=== PATIENT | female | born 1960 | race Caucasian/White ===

== ENCOUNTER → 2017-11-27 14:53 | Outpatient (CLI) | payer OTHER, SELFPAY | PROVIDERS: Visit Provider Nurse Practitioner | DX: Z78.0 Asymptomatic menopausal state (principal) | CPT/HCPCS: 77080 ==

== ENCOUNTER → 2019-02-12 16:15 | Outpatient (CLI) | payer OTHER, SELFPAY ==
--- NOTE | 2019-02-12 16:17 | BI_ITS ---
MAMMOGRAPHY - BILATERAL SCREENING REASON FOR EXAM: Female, 59 years old. Routine annual screening examination. PERTINENT HISTORY: Sister with breast cancer. Grandmother with breast cancer. TECHNIQUE: Digital bilateral breast renee (3D mammographic acquisition) in the CC and MLO projections. 2-D mediolateral oblique (MLO) and craniocaudad (CC) views of both breasts were obtained. CAD: Full Field Digital Mammography with Computer Added Detection was performed. COMPARISON: Comparison is made with prior outside examination dated October 06, 2016. FINDINGS: Breast Composition: There are scattered areas of fibroglandular density. There are no dominant masses or suspicious calcifications. Stable 7.7 mm well-defined nodule in the upper lateral aspect of the right breast. This most likely represents a small lymph node. Stable fat-containing bilateral axillary lymph nodes. No other significant abnormalities are identified. There has been no significant change since the prior study. BI/SCREEN MAMM (CAD) W/RENEE BILAT IMPRESSION: Stable bilateral screening mammogram. Yearly follow-up mammogram recommended. (A) ASSESSMENT CATEGORY: BIRADS Category 2: Benign. A letter regarding these results will be sent to the patient by the facility within 30 days. Approximately 10% of breast cancers are not detected by mammography. A normal mammogram should not delay biopsy of a clinically suspicious abnormality. [id number] Electronically Signed: Srinath Linder, at 8:18 EST , Service support ,
== END ==
PROVIDERS: Family Provider Nurse Practitioner; PCP Nurse Practitioner; Referring Provider Nurse Practitioner; Visit Provider Nurse Practitioner
DX: Z12.31 Encounter for screening mammogram for malignant neoplasm of breast (principal)
CPT/HCPCS: 77063; 77067

== ENCOUNTER → 2020-03-16 13:20 | Outpatient (CLI) | payer OTHER, SELFPAY ==
--- NOTE | 2020-03-16 13:23 | BI_ITS ---
MAMMOGRAPHY - BILATERAL SCREENING REASON FOR EXAM: Female, 60 years old. Routine annual screening examination. PERTINENT HISTORY: Sister with breast cancer. Grandmother with breast cancer. TECHNIQUE: Digital bilateral breast renee (3D mammographic acquisition) in the CC and MLO projections. 2-D mediolateral oblique (MLO) and craniocaudad (CC) views of both breasts were obtained. CAD: Full Field Digital Mammography with Computer Added Detection was performed. COMPARISON: Comparison is made with prior examination dated 02/12/2019. FINDINGS: Breast Composition: There are scattered areas of fibroglandular density. There are no dominant masses or suspicious calcifications. Stable benign appearing bilateral axillary lymph nodes. There is a 9.2 mm x 7.8 mm well-defined nodule in the upper slightly medial portion of the left breast. Correlation with ultrasound is recommended. No other significant abnormalities are identified. BI/SCREEN MAMM (CAD) W/RENEE BILAT IMPRESSION: 19.2 mm x 7 point millimeter well-defined nodule in the upper slightly medial portion of the left breast. Correlation with ultrasound is recommended. ASSESSMENT CATEGORY: BIRADS Category 0: Incomplete. Need additional imaging evaluation. A letter regarding these results will be sent to the patient by the facility within 30 days. Approximately 10% of breast cancers are not detected by mammography. A normal mammogram should not delay biopsy of a clinically suspicious abnormality. [id number] Electronically Signed: Srinath Linder, at 14:31 EST , Service support ,
--- NOTE | 2020-03-16 13:25 | BD_ITS ---
STUDY: DUAL ENERGY X-RAY ABSORPTIOMETRY / DXA REASON FOR EXAM: Female, 60 years old. 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 COMPARISON: Comparison is made with prior examination -- 11/27/2017. FINDINGS: Lumbar Spine (L1-L4): g/cm2 (1.086) / T-score (-0.8) / Z-score (0.4) Findings are suggestive of normal bone density with a low fracture risk. Left Femur Total: g/cm2 (1.045) / T-score (0.3) / Z-score (1.2) Left Femoral Neck: g/cm2 (0.991) / T-score (-0.3) / Z-score (0.9) Right Femur Total: g/cm2 (1.052) / T-score (0.4) / Z-score (1.3) Right Femoral Neck: g/cm2 (0.979) / T-score (-0.4) / Z-score (0.8) The T-Scores on the most recent prior examination were: Lumbar Spine (L1-L4): There has been improvement of bone density since the previous examination. Left Femur Total: which represents an improvement of 2.1%. Right Femur Total: which represents an improvement of 1.6%. BD/Dexa Bone Density Study IMPRESSION: The patient is considered normal as outlined below according to World Gera Organization (WHO) criteria with a low fracture risk. There has been improvement of bone density since the previous examination. Reference Information: The T-score is the number of standard deviations above or below the standard which is normal for young adults at their peak bone mineral density. The World Health Organization (WHO) interprets the T-scores as follows: Above -1 Normal bone density Between -1 and -2.5 Osteopenia Equal to / or below -2.5 Osteoporosis As a practical clinical guideline, osteopenia may be graded as follows: Mild -1 through -1.5 Moderate -1.6 through -2.0 Severe -2.1 through -2.4 The Z-score is the number of standard deviations above or below age-matched controls. A Z-score of less than -1.5 would be considered abnormal. References: 1. NIH Osteoporosis and Related Bone Diseases www osteo.org 2. International Society for Clinical Densitometry www iscd.org 3. National Osteoporosis Foundation www nof.org Electronically Signed: Srinath Linder, at 15:37 EST , Service support ,
== END ==
PROVIDERS: PCP Nurse Practitioner; Referring Provider Nurse Practitioner; Visit Provider Nurse Practitioner
DX: Z12.31 Encounter for screening mammogram for malignant neoplasm of breast (principal); Z78.0 Asymptomatic menopausal state; Z80.3 Family history of malignant neoplasm of breast
CPT/HCPCS: 77063; 77067; 77080

== ENCOUNTER → 2020-03-22 08:25 | Outpatient (CLI) | payer OTHER, SELFPAY ==
--- NOTE | 2020-03-22 08:27 | US_ITS ---
STUDY: ULTRASOUND BREAST - LEFT REASON FOR EXAM: Female, 60 years old. TECHNIQUE: Axial and longitudinal images of the LEFT breast were performed with a high resolution ultrasound transducer. # OF IMAGES: 125 COMPARISON: None. FINDINGS: LEFT Breast: There is a lesion #1 in the upper inner quadrant. The lesion measures 3 x 5 x 4 mm in size. Clock notation: 12 o''clock position. Distance from nipple: 1 cm. Posterior Enhancement: Yes. Posterior Shadowing: None. Margins: Sharp and smooth. Echogenicity: Anechoic. Compression effect on Shape: No change. There is a lesion # 2 in the upper inner quadrant. The lesion measures 1x1.3x056 cm in size. Clock notation: 3 o''clock position. Distance from nipple: 6 cm. Posterior Enhancement: Yes. Posterior Shadowing: None. Margins: Sharp and jagged. Echogenicity: Anechoic. Compression effect on Shape: No change. US/Breast Limited Unilateral IMPRESSION: Lesion #1 is consistent with benign cyst. Lesion #2 is probably benign finding most likely dilated duct. A follow-up in 6 months is recommended. ASSESSMENT CATEGORY: BIRADS Category 3: Probably Benign - Short-Interval Follow-up Suggested. A letter regarding these results will be sent to the patient by the facility within 30 days. Electronically Signed: Pj Peguero, at 15:52 EST Tel , Service support ,
== END ==
PROVIDERS: PCP Nurse Practitioner; Referring Provider Nurse Practitioner; Visit Provider Nurse Practitioner
DX: N63.22 Unspecified lump in the left breast, upper inner quadrant (principal)
CPT/HCPCS: 76642

== ENCOUNTER → 2021-12-19 | Outpatient (CLI) | payer OTHER, SELFPAY ==
--- NOTE | 2021-12-19 13:23 | RAD_ITS ---
INDICATION: URI (upper respiratory infection EXAMINATION/TECHNIQUE: X-RAY - XR Chest 2 Views COMPARISON: None. FINDINGS: LINES/DEVICES: None. LUNGS: Asymmetric hazy pulmonary opacities within the right lower lung. No overt pulmonary edema. No sizable pleural effusion. No pneumothorax detected. MEDIASTINUM AND CARDIOVASCULAR STRUCTURES: Heart size within normal limits. Mediastinal contours unremarkable. BONES AND SOFT TISSUES: No acute findings. RAD/Chest PA and Lateral IMPRESSION: Right lower lung pulmonary infiltrate. Electronically Signed: Stan Castañeda MD at 6:53 EDT ,
== END | disposition home or self-care (01) ==
LOC: RAD 13:11
PROVIDERS: PCP Nurse Practitioner Family; Referring Provider Nurse Practitioner Family; Visit Provider Nurse Practitioner Family
DX: J06.9 Acute upper respiratory infection, unspecified (principal)
CPT/HCPCS: 71046

== ENCOUNTER 2022-06-24 17:18 | Emergency (ER) | payer OTHER, SELFPAY ==
[2022-06-24 17:23] VITALS: BP 197/120; PULSE 126; RESP 22; TEMP 37.6; O2SAT 95; BMI 36.3
--- NOTE | 2022-06-24 17:38 | ED.VIS.DYS ---
HPI <LINA Ayon - Last Filed: 06/24/22 19:00> History of Present Illness Chief Complaint: Shortness of Breath Narrative Narrative: Patient presenting today with cold-like symptoms that she has had for the past week. She states that she has had a productive cough, body aches, decreased appetite, nasal congestion and over the past 3 days has had fevers. She denies any sick contacts, shortness of breath, chest pain, abdominal pain, nausea, vomiting, and diarrhea. She states that she had pneumonia in November and this is exactly how she felt. Denies having any chronic health conditions but states she does not follow-up with her PCP regularly. [facility] <LINA Ayon - Last Filed: 06/24/22 19:00> [facility] Home Medications azithromycin 250 mg tablet 250 mg PO DAILY #4 TABLETS 06/24/22 [Rx Last Taken Unknown] Allergy/AdvReac Type Severity Reaction Status Date / Time codeine Allergy PT UNSURE Verified 06/24/22 17:23 OF REACTION Penicillins [PCN] Allergy Rash Verified 06/24/22 17:23 doxycycline AdvReac Nausea/Vom/ Verified 06/24/22 17:23 Diarrhea levofloxacin AdvReac Nausea/Vom/ Verified 06/24/22 17:23 Diarrhea Sulfa (Sulfonamide AdvReac PT UNSURE Verified 06/24/22 17:23 Antibiotics) OF REACTION Surgical History (Updated 06/24/22 @ 18:03 by Betty Salas RN) Hx of cholecystectomy Hx of hysterectomy Social History Smoking Status: Never smoker ROS <LINA Ayon - Last Filed: 06/24/22 19:00> ROS ED Constitutional Constitutional ED: Reports chills and fever(s) ENT ENT ED: Reports nasal congestion and sore throat Cardiovascular Cardiovascular: Denies chest pain or palpitations Respiratory/Chest Respiratory/Chest: Reports cough; Denies dyspnea Gastrointestinal Gastrointestinal: Denies abdominal pain, nausea or vomiting Musculoskeletal Musculoskeletal: Reports myalgias; Denies arthralgias Integumentary Denies abscess, Abrasions or rash Neurologic Neurologic: Reports weakness Psychiatric Psychiatric: Denies anxiety, depression, suicidal ideation or suicidal thoughts EXAM <LINA Ayon - Last Filed: 06/24/22 19:00> Physical Exam Const Vital Signs: 06/24/22 17:23 06/24/22 18:02 06/24/22 18:02 Temperature 99.7 F H Temperature Source Temporal Pulse Rate 126 H Respiratory Rate 22 H Respiratory Effort Respiratory Depth Respiratory Pattern Blood Pressure 197/120 H 149/78 H 149/78 H Blood Pressure Mean 145 101 101 Pulse Ox 95 Oxygen Delivery Method Room Air 06/24/22 18:03 06/24/22 19:18 Temperature 99.1 F Temperature Source Pulse Rate 103 H Respiratory Rate 16 Respiratory Effort Short of Breath Respiratory Depth Normal Respiratory Pattern Normal Blood Pressure 145/95 H Blood Pressure Mean Pulse Ox 97 Oxygen Delivery Method Positive well nourished, well developed and no apparent distress General Appearance ED: well developed HEENT Reports normocephalic and head/scalp atraumatic HEENT Narrative: Right TM does have an effusion without any bulging or erythema of the TM. Left TM clear. Posterior pharynx erythemic without any tonsillar exudates, uvula midline, no trismus, no drooling. Mouth ED: Yes moist mucous membranes normal Eyes PERRL and EOMs intact bilaterally Neck full ROM and supple Chest Wall inspection of chest normal Resp normal respiratory effort and clear to auscultation bilaterally Cardio regular rate and regular rhythm GI soft to palpation, non-tender, non-distended and no masses Back/Spine normal ROM and normal to inspection Extremity normal to inspection and full ROM Neuro oriented x3, CN's II-XII intact bilaterally, moves all extremities, no focal motor deficits and no sensory deficits noted Sensorium / Orientation: awake and alert Psych mental status grossly normal and thought process normal Skin no rashes or lesions noted and no wounds <Dr. Madi Asencio, DO - Last Filed: 06/25/22 01:06> Physical Exam Const Vital Signs: 06/24/22 17:23 06/24/22 18:02 06/24/22 18:02 Temperature 99.7 F H Temperature Source Temporal Pulse Rate 126 H Respiratory Rate 22 H Respiratory Effort Respiratory Depth Respiratory Pattern Blood Pressure 197/120 H 149/78 H 149/78 H Blood Pressure Mean 145 101 101 Pulse Ox 95 Oxygen Delivery Method Room Air 06/24/22 18:03 06/24/22 19:18 Temperature 99.1 F Temperature Source Pulse Rate 103 H Respiratory Rate 16 Respiratory Effort Short of Breath Respiratory Depth Normal Respiratory Pattern Normal Blood Pressure 145/95 H Blood Pressure Mean Pulse Ox [address] [facility] <LINA Ayon - Last Filed: 06/24/22 19:00> [facility] Narrative Medical decision making narrative: Patient presenting with cold-like symptoms that she has had over the past week. She denies any shortness of breath or chest pain. She is 95% on room air. She is well-appearing and in no acute distress. She does have concerns that she has pneumonia, chest x-ray has been obtained to rule this out. Rapid COVID and flu swabs have been obtained. She has been given IV fluids because she is all tachycardic at 126 bpm. Tylenol has been given. She is hypertensive here she states she does not have hypertension but she also does not have good follow-up with her PCP I have educated her on the importance of keeping blood pressure under control and encouraged her to follow-up with her PCP on that. Chest x-ray is suggestive for pneumonia. Given her symptoms she will be treated with azithromycin first dose here. She has remained above 95% on room air. She will be discharged home in stable condition and is to follow-up with her PCP. She is comfortable with plan. She has been given return instructions. Radiography Chest X-Ray - ED: Read by ED Physician and Read by Radiologist Diagnostic Testing: Clinical Impression(s) from Imaging Studies Chest X-Ray 06/24/22 18:00 IMPRESSION: 1. Mild interstitial prominence at the lung bases, subtle interstitial infiltrate is a consideration. 2. No lobar consolidation, congestive failure or effusion. Electronically Signed: Ryan Caballero MD at 18:28 EDT , <Dr. Madi Asencio, - Last Filed: 06/25/22 01:06> [facility] Radiography Diagnostic Testing: Clinical Impression(s) from Imaging Studies Chest X-Ray 06/24/22 18:00 IMPRESSION: 1. Mild interstitial prominence at the lung bases, subtle interstitial infiltrate is a consideration. 2. No lobar consolidation, congestive failure or effusion. Electronically Signed: Ryan Caballero MD at 18:28 EDT , Treatment and Re-Evaluation :: I have personally performed a face to face assessment of the patient and have reviewed the LALI Note. I performed a substantive portion of the visit including all aspects of the following. My orozco findings include: History: Patient presents with cough and congestion that has been getting worse over the past week. Patient admits to a fever of 101.3 at home. Patient states she is coughing up some dark sputum. Patient admits to some pain in her chest with coughing. Patient states this feels similar to prior episode of pneumonia. Patient is concerned she has pneumonia again. Patient does admit to some nausea and vomiting. Patient also admits to some diarrhea. Exam: Vital signs are stable. Patient is afebrile. Patient is in no acute distress. Oral mucosa is pink and moist. Neck is supple. Trachea is midline. There is no JVD. Heart was regular rate and rhythm. Lungs are clear and equal bilaterally. There is adequate respiratory effort. Abdomen is soft. Bowel sounds are normal. There is no tenderness. Cranial nerves II through XII are intact. There are no focal motor or sensory deficits. Medical Decision Making: Patient was given a dose of Tylenol here. Patient was given IV fluids. Differential diagnosis includes pneumonia, pneumothorax, viral upper respiratory infection, COVID infection, and influenza infection. Chest x-ray will be obtained to assess for pneumonia. COVID 19 rapid antigen will be obtained to assess for COVID infection. Influenza A and influenza B rapid antigens will be obtained to assess for influenza infection. COVID-19 rapid antigen was reviewed and was negative. Influenza A and influenza B rapid antigens were reviewed and were negative. PA and lateral chest x-ray was obtained. On my independent interpretation, there is a questionable interstitial infiltrate in the left lower lobe. There is no pneumothorax. Bony thorax is normal. There is no cardiomegaly. Radiologist also interpreted the x-ray and agrees. Patient was given a dose of Zithromax here. Patient was given a prescription for Zithromax. Patient was instructed to follow-up with her primary care physician in 5 to 7 days. Patient understood and was agreeable with the plan. All questions were answered. Discharge Plan Triage Chief Complaint: Shortness of Breath ED Midlevel Provider: Bev Pruett ED Provider: Madi Asencio Dx/Rx/DC Orders Clinical Impression: Pneumonia Instructions: ED Pneumonia (Adult) Prescriptions: New azithromycin 250 mg tablet 250 mg PO DAILY Qty: 4 0RF Primary Care Provider: Johana Whitehead Referrals: Johana Whitehead, CUTTING TABLE OPERATOR [facility] [Primary Care Provider] - 3-5 Days Activity Restrictions/Additional Instructions: Please follow-up with your PCP and return for any worsening of symptoms. Disposition Disposition: Home, Self Care Discharge Date/Time: 06/24/22 19:34
[2022-06-24] MEDS: 0.9% Normal Saline 1,000 ML 999 ML IV (17:56)
[2022-06-24] MEDS: Acetaminophen 325 MG Tablet 650 MG PO (17:56)
--- NOTE | 2022-06-24 18:00 | RAD_ITS ---
INDICATION: cough, sob EXAMINATION/TECHNIQUE: X-RAY - XR Chest 2 Views COMPARISON: 12/19/2021 FINDINGS: LIFE-SUPPORT AND LINES: 1. None HEART AND VESSELS: The cardiac silhouette, pulmonary vasculature have normal appearance. No evidence of congestive failure. LUNGS AND PLEURAL SPACES: Minimal interstitial prominence at the lung bases however no lobar consolidation or effusion. Significant improvement since prior exam. No pulmonary mass is noted. MEDIASTINUM AND HILAR REGIONS: No masses adenopathy noted. No areas of calcification. Visualized upper airway is normal in position. BONY ELEMENTS: No acute bony changes noted. RAD/Chest PA and Lateral IMPRESSION: 1. Mild interstitial prominence at the lung bases, subtle interstitial infiltrate is a consideration. 2. No lobar consolidation, congestive failure or effusion. Electronically Signed: Ryan Caballero MD at 18:28 EDT ,
[2022-06-24 18:02] VITALS: BP 149/78
[2022-06-24] MEDS: Azithromycin 250 MG Tablet 500 MG PO (19:17)
[2022-06-24 19:18] VITALS: BP 145/95; PULSE 103; RESP 16; TEMP 37.3; O2SAT 97
== END 2022-06-24 19:34 | disposition home or self-care (01) ==
PROVIDERS: Emergency Provider Emergency Medicine; PCP Nurse Practitioner Family; Visit Provider Emergency Medicine
DX: J18.9 Pneumonia, unspecified organism (principal); Z20.822 Contact with and (suspected) exposure to COVID-19
CPT/HCPCS: 71046; 87428; 96360; 99284; J7030; A4216

== ENCOUNTER → 2022-12-08 | Outpatient (CLI) | payer OTHER, SELFPAY ==
--- NOTE | 2022-12-08 08:30 | BI_ITS ---
MAMMOGRAPHY - BILATERAL SCREENING REASON FOR EXAM: Female, 62 years old. Routine annual screening examination. PERTINENT HISTORY: Sister with breast cancer. Grandmother with breast cancer. TECHNIQUE: Digital bilateral breast renee (3D mammographic acquisition) in the CC and MLO projections. 2-D mediolateral oblique (MLO) and craniocaudad (CC) views of both breasts were obtained. CAD: Full Field Digital Mammography with Computer Added Detection was performed. COMPARISON: Comparison is made with prior study dated March 16, 2020 and February 12, 2019. FINDINGS: Breast Composition: There are scattered areas of fibroglandular density. There are no dominant masses or suspicious calcifications. No other significant abnormalities are identified. There has been no significant change since the prior study. BI/SCRN MAMM (CAD)W/RENEE BILAT IMPRESSION: Stable bilateral screening mammogram. Yearly follow-up mammogram recommended. (A) ASSESSMENT CATEGORY: BIRADS Category 1: Negative. A letter regarding these results will be sent to the patient by the facility within 30 days. Approximately 10% of breast cancers are not detected by mammography. A normal mammogram should not delay biopsy of a clinically suspicious abnormality. [id number] Electronically Signed: Srinath Linder MD at 11:06 EDT ,
== END | disposition home or self-care (01) ==
LOC: OPBI 08:29
PROVIDERS: PCP Nurse Practitioner Family; Referring Provider Registered Nurse; Visit Provider Nurse Practitioner Family
DX: Z12.31 Encounter for screening mammogram for malignant neoplasm of breast (principal); Z80.3 Family history of malignant neoplasm of breast
CPT/HCPCS: 77063; 77067

== ENCOUNTER → 2022-12-26 | Outpatient (CLI) | payer OTHER, SELFPAY ==
--- NOTE | 2022-12-26 13:51 | BD_ITS ---
STUDY: DUAL ENERGY X-RAY ABSORPTIOMETRY / DXA REASON FOR EXAM: Female, 62 years old. [id number] TECHNIQUE: Bone Mineral Density (BMD) measurements of lumbar spine and bilateral hips were obtained. COMPARISON: Comparison is made with prior examination of March 16, 2020. FINDINGS: Lumbar Spine (L1-L4): g/cm2 (0.903) / T-score (-1.3) / Z-score (0.3) Findings are suggestive of osteopenia with a low fracture risk. Left Femur Total: g/cm2 (0.955) / T-score (0.1) / Z-score (1.2) Left Femoral Neck: g/cm2 (0.812) / T-score (-0.3) / Z-score (1.1) Right Femur Total: g/cm2 (0.945) / T-score (0.0) / Z-score (1.1) Right Femoral Neck: g/cm2 (0.800) / T-score (-0.4) / Z-score (1.0) The T-Scores on the most recent prior examination were: Lumbar Spine (L1-L4): There has been worsening of bone density since the previous examination. Left Femur Total: which represents a worsening of 2.3%. Right Femur Total: which represents a worsening of 4.1%. BD/Dexa Bone Density Study IMPRESSION: The patient is considered osteopenic as outlined below according to World Gera Organization (WHO) criteria with a low fracture risk. There has been worsening of bone density since the previous examination. Reference Information: The T-score is the number of standard deviations above or below the standard which is normal for young adults at their peak bone mineral density. The World Health Organization (WHO) interprets the T-scores as follows: Above -1 Normal bone density Between -1 and -2.5 Osteopenia Equal to / or below -2.5 Osteoporosis As a practical clinical guideline, osteopenia may be graded as follows: Mild -1 through -1.5 Moderate -1.6 through -2.0 Severe -2.1 through -2.4 The Z-score is the number of standard deviations above or below age-matched controls. A Z-score of less than -1.5 would be considered abnormal. References: 1. NIH Osteoporosis and Related Bone Diseases www osteo.org 2. International Society for Clinical Densitometry www iscd.org 3. National Osteoporosis Foundation www nof.org Electronically Signed: Srinath Linder MD at 15:09 EDT ,
== END | disposition home or self-care (01) ==
LOC: OPBD 13:44
PROVIDERS: PCP Nurse Practitioner Family; Referring Provider Nurse Practitioner Family; Visit Provider Nurse Practitioner Family
DX: Z78.0 Asymptomatic menopausal state (principal)
CPT/HCPCS: 77080

== ENCOUNTER → 2023-09-18 | Outpatient (CLI) | payer OTHER, SELFPAY ==
--- NOTE | 2023-09-18 13:04 | CT_ITS ---
STUDY: CT CHEST WITHOUT CONTRAST REASON FOR EXAM: Female, 63 years old. Abnormal pulmonary finding RADIATION DOSAGE (If Supplied By Facility): CTDIvol = ( 17.35 ) mGy, DLP = ( 607.03 ) mGycm TECHNIQUE: Transaxial imaging was performed without the administration of intravenous contrast material. Multiplanar coronal and sagittal images were reformatted. Individualized dose optimization techniques were used for this CT. COMPARISON: No relevant priors. FINDINGS: CHEST There is a 1.1 cm bulla in the posterior aspect of the left lower lobe as seen on axial image #71. There is no demonstrated pleural abnormality. There are minimal calcifications of the coronary arteries. Normal mediastinum. Normal hilar regions. Normal unenhanced pulmonary arteries. There is atherosclerotic calcification of the aortic arch. There are degenerative changes of the thoracic spine. Small hiatal hernia. The gallbladder is not visualized. CT/Chest without Contrast IMPRESSION: Minimal degree of coronary artery calcification. 1.1 cm bulla in the posterior aspect of the left lower lobe as seen on axial image #70. Small hiatal hernia. Status post cholecystectomy. Electronically Signed: Srinath Linder MD at 14:57 EDT ,
== END | disposition home or self-care (01) ==
PROVIDERS: PCP Nurse Practitioner Family; Referring Provider Nurse Practitioner Family; Visit Provider Nurse Practitioner Family
DX: R09.89 Other specified symptoms and signs involving the circulatory and respiratory systems (principal)
CPT/HCPCS: 71250

== ENCOUNTER → 2023-10-12 | Outpatient (CLI) | payer OTHER, SELFPAY ==
--- NOTE | 2023-10-12 08:10 | CT_ITS ---
STUDY: CT CHEST WITHOUT CONTRAST REASON FOR EXAM: Female, 63 years old. S/S OF CIRC/RESP SYSTEMS HIGH RES RADIATION DOSAGE (If Supplied By Facility): CTDIvol = ( 16.50 ) mGy, DLP = ( 715.48 ) mGycm TECHNIQUE: Transaxial imaging was performed without the administration of intravenous contrast material. Multiplanar coronal and sagittal images were reformatted. Individualized dose optimization techniques were used for this CT. COMPARISON: Comparison is made with prior study dated September 18, 2023. FINDINGS: CHEST Minimal linear densities are seen in the medial aspect of the lingular segment of the left upper lobe suggests a mild scarring. 2 mm noncalcified nodule in the lateral aspect of the right lower lobe as seen on axial image #92. A 12 month follow-up recommended. There is no demonstrated pleural abnormality. Minimal coronary calcification. Normal mediastinum. Normal hilar regions. Normal unenhanced pulmonary arteries. Normal aorta arch and descending thoracic aorta. There are degenerative changes of the thoracic spine. Small hiatal hernia. Status post cholecystectomy. CT/Chest without Contrast IMPRESSION: 2 mm noncalcified nodule in the lateral aspect of the right lower lobe patchy on axial image #92. A 12 month follow-up recommended. Electronically Signed: Srinath Linder MD at 12:39 EDT ,
== END | disposition home or self-care (01) ==
LOC: CT 08:02
PROVIDERS: PCP Nurse Practitioner Family; Referring Provider Nurse Practitioner Family; Visit Provider Nurse Practitioner Family
DX: R91.1 Solitary pulmonary nodule (principal)
CPT/HCPCS: 71250

== ENCOUNTER → 2023-12-10 | Outpatient (CLI) | payer OTHER, SELFPAY ==
--- NOTE | 2023-12-10 08:03 | BI_ITS ---
MAMMOGRAPHY - BILATERAL SCREENING REASON FOR EXAM: Female, 63 years old. Routine annual screening examination. PERTINENT HISTORY: Sister with breast cancer. Grandmother with breast cancer. TECHNIQUE: Digital bilateral breast renee (3D mammographic acquisition) in the CC and MLO projections. 2-D mediolateral oblique (MLO) and craniocaudad (CC) views of both breasts were obtained. CAD: Full Field Digital Mammography with Computer Added Detection was performed. COMPARISON: Comparison is made with prior study December 08, 2022 and not in March 16, 2020. FINDINGS: Breast Composition: There are scattered areas of fibroglandular density. There are no dominant masses or suspicious calcifications. Stable bilateral fat-containing axillary lymph nodes. No other significant abnormalities are identified. There has been no significant change since the prior study. BI/SCRN MAMM (CAD)W/RENEE BILAT IMPRESSION: Stable bilateral screening mammogram. Yearly follow-up mammogram recommended. (A) ASSESSMENT CATEGORY: BIRADS Category 2: Benign. A letter regarding these results will be sent to the patient by the facility within 30 days. Approximately 10% of breast cancers are not detected by mammography. A normal mammogram should not delay biopsy of a clinically suspicious abnormality. [id number] Electronically Signed: Srinath Linder MD at 9:31 EDT ,
== END | disposition home or self-care (01) ==
LOC: OPBI 08:03
PROVIDERS: PCP Nurse Practitioner Family; Referring Provider Nurse Practitioner Family; Visit Provider Nurse Practitioner Family
DX: Z12.31 Encounter for screening mammogram for malignant neoplasm of breast (principal)
CPT/HCPCS: 77063; 77067

== ENCOUNTER 2024-07-31 08:51 | Outpatient (RCR) | payer SELFPAY | END 2024-08-23 23:59 | LOC: NS 08:51 | PROVIDERS: PCP Nurse Practitioner Family | DX: Z71.3 Dietary counseling and surveillance (principal) ==

== ENCOUNTER → 2024-10-10 | Outpatient (CLI) | payer SELFPAY ==
--- NOTE | 2024-10-10 17:21 | CT_ITS ---
PROCEDURE: ABDOMEN/PELVIS WITH CONTRAST 10/10/2024 REASON FOR EXAM: RLQ PAIN TECHNIQUE: ABDOMEN/PELVIS WITH oral and IV CONTRAST Coronal and Sagittal reconstruction series were provided. CONTRAST: Isovue 300 VOLUME: 98 ML One or more dose reduction techniques were used (e.g., Automated exposure control, adjustment of the mA and/or kV according to patient size, use of iterative reconstruction technique. RADIATION DOSE SUMMARY: CTDlvol: 22.0 mGy DLP: 1208 mGycm COMPARISON: CT chest 10/12/2023 FINDINGS: Lower chest: Solid nodule measuring 2 mm in the right lower lobe is unchanged from 10/12/2023 (series 2, image 5) and likely benign. Liver: Unremarkable Gallbladder: Surgically absent. Spleen: Unremarkable Pancreas: Normal size without evidence of mass surrounding inflammation or ductal dilation. Adrenals: Unremarkable Kidneys: Nonobstructing stone at the lower pole of the left kidney measuring 6 mm. No hydronephrosis on either side. Bladder: Unremarkable for degree of distention Reproductive Organs: Prior hysterectomy. Adnexal regions are unremarkable. Bowel: Hiatal hernia, unchanged. Prominent appearance of the pylorus circumferentially, with wall measuring up to 9 mm. There is oral contrast throughout the stomach and small bowel. No obstruction or inflammation. Normal appendix. Lymph nodes: No suspicious lymph node enlargement. Vasculature: Minimal aortic atherosclerosis Bones: Unremarkable Soft tissues: Unremarkable CT/Abdomen/Pelvis WITH Contrast IMPRESSION: 1. No definite findings to account for the reported symptoms. Normal appendix . 2. Slightly prominent appearance of the gastric pylorus, possibly normal varia tion. Correlate with symptoms and consider GI referral if clinically relevant. 3. Hiatal hernia, unchanged. 4. Nonobstructing stone measuring 6 mm at the lower pole of the left kidney. Reading Location: [id number]
== END | disposition home or self-care (01) ==
LOC: CT 17:17
PROVIDERS: PCP Nurse Practitioner Family; Referring Provider Internal Medicine; Visit Provider Internal Medicine
DX: R10.31 Right lower quadrant pain (principal)
CPT/HCPCS: 74177; Q9967

== ENCOUNTER → 2025-01-02 | Outpatient (CLI) | payer MEDICARE, OTHER, SELFPAY | END | disposition home or self-care (01) | LOC: OPBI 12:06 | PROVIDERS: PCP Nurse Practitioner Family; Referring Provider Nurse Practitioner Family; Visit Provider Nurse Practitioner Family | DX: Z12.31 Encounter for screening mammogram for malignant neoplasm of breast (principal) | CPT/HCPCS: 77063; 77067 ==

== ENCOUNTER → 2025-01-07 | Outpatient (CLI) | payer MEDICARE, OTHER, SELFPAY ==
--- NOTE | 2025-01-07 09:12 | BD_ITS ---
PROCEDURE: DEXA BONE DENSITY STUDY 01/07/2025 REASON FOR EXAM: F, age 64 y/o . Postmenopausal. TECHNIQUE: Procedure Code: BDDBD Modality: DX Procedure: DEXA BONE DENSITY STUDY COMPARISON: December 26, 2022. FINDINGS: BMD and T-SCORES Lumbar spine: 0.746 g/cm2, T-score -2.1 Levels: L1 through L4 Change from prior: Loss of 10%. Left femoral neck: 0.781 g/cm2, T-score -0.6 Femoral neck comparison data not recommended for monitoring change. Left total hip: 0.980 g/cm2, T-score 0.3 Change from prior: Improvement of 2.6%. Right femoral neck: 0.825 g/cm2, T-score -0.2 Femoral neck comparison data not recommended for monitoring change. Right total hip: 0.946 g/cm2, T-score 0.0 Change from prior: Improvement of 0.2%. The World Health Organization has defined the following categories based on bone density: Normal bone density: T-score equal to or greater than -1.0 Osteopenia: T-score between -1.0 and -2.5 Osteoporosis: T-score equal to or less than -2.5 FRAX (or Comparable) Fracture Risk Assessment: 10 Year Probability of Fracture: Major Osteoporotic Fracture: 6.8% Hip Fracture: 0.3% (Note: FRAX is not to be reported in setting of normal range bone density, osteoporosis on DEXA, known history of osteoporosis, prior osteoporotic hip or vertebral fracture, or for any patient undergoing pharmacological treatment for bone loss.) The National Osteoporosis Foundation (NOF) recommends pharmacological treatment for patients with a FRAX 10-year risk of 3% or higher for a hip fracture, or 20% or higher for a major osteoporotic fracture, to prevent osteoporosis and reduce fracture risk. The patient does meet the pharmacological treatment recommendations for prevention of osteoporosis. BD/Dexa Bone Density Study IMPRESSION: OSTEOPENIA. Recommend follow-up as clinically warranted. Reading Location: [place] [id number]
== END | disposition home or self-care (01) ==
LOC: OPBD 09:08
PROVIDERS: PCP Nurse Practitioner Family; Referring Provider Nurse Practitioner Family; Visit Provider Nurse Practitioner Family
DX: Z78.0 Asymptomatic menopausal state (principal); M85.80 Other specified disorders of bone density and structure, unspecified site
CPT/HCPCS: 77080

== ENCOUNTER → 2025-01-12 | Outpatient (CLI) | payer MEDICARE, OTHER, SELFPAY ==
--- NOTE | 2025-01-12 16:22 | CT_ITS ---
PROCEDURE: CHEST WITHOUT CONTRAST 01/12/2025 REASON FOR EXAM: LUNG NODULE TECHNIQUE: Chest CT without contrast. Coronal and Sagittal reconstruction series were provided. One or more dose reduction techniques were used (e.g., Automated exposure control, adjustment of the mA and/or kV according to patient size, use of iterative reconstruction technique RADIATION DOSE SUMMARY: CTDlvol: 16.03 mGy DLP: 548.63 mGycm COMPARISON: CT chest without contrast, 10/12/2023 FINDINGS: Lower neck:The thyroid gland is normal. There is no supraclavicular lymphadenopathy. Mediastinum:No abnormal masses or lymphadenopathy. Heart and Vasculature:The heart size is normal. There is minimal calcific vascular disease of the thoracic aorta and coronary arteries. Esophagus:There is a large partially paraesophageal hiatal hernia. Upper Abdomen:There is minimal calcific vascular disease of the visualized abdominal aorta. The gallbladder is surgically absent. Chest wall:The soft tissues of the chest wall appear unremarkable. There is no axillary lymphadenopathy. There is [id number] multilevel degenerative disc disease of the thoracic spine. Lungs, airways and pleura: There is a stable pneumatocele in the lower lobe of the left lung. There are no pulmonary nodules or masses. There is no significant interstitial or alveolar lung disease. There are no pleural effusions. CT/Chest without Contrast IMPRESSION: 1. Stable left lower lobe pneumatocele. 2. There are no pulmonary nodules. 3. There is minimal calcific vascular disease. 4. Other findings as noted, no significant change. Reading Location: [place] [id number]
== END | disposition home or self-care (01) ==
PROVIDERS: PCP Nurse Practitioner Family; Referring Provider Nurse Practitioner Family; Visit Provider Nurse Practitioner Family
DX: R91.1 Solitary pulmonary nodule (principal)
CPT/HCPCS: 71250